=== PATIENT | male | born 1935 | race Caucasian/White ===

== ENCOUNTER 2018-06-04 12:27 | Inpatient (IN) ==
[2018-06-04] MEDS ORDERED: 0.9 % SODIUM CHLORIDE 1,000 ML IV ONE ×2 (12:40→14:24)
--- NOTE | 2018-06-04 12:52 | XRay Report ---
HISTORY: Shortness of breath and weakness FINDINGS: There are bands of scar tissue at the left lung base with minor interstitial fibrosis laterally in the left mid thorax. Mildly prominent increased interstitial lung markings are present in the right lower lobe. These have become worse since 04/04/16. In addition the heart has enlarged since that time. There is no congestive heart failure or pleural effusion. There may be calcified plaques along the top of left diaphragm. Several small calcified granulomata are present bilaterally. IMPRESSION: Pulmonary fibrosis Cardiomegaly Old granulomatous disease Interpreted and Authenticated by: Christian Flores 06/04/18
[2018-06-04] MEDS ORDERED: DEXTROSE 5%-NS 1,000 ML IV SCH (13:15)
[2018-06-04] MEDS ORDERED: IPRATROPIUM/ALBUTEROL 3 ML AMPUL.NEB NEB ONE ×2 (13:15→16:50)
--- NOTE | 2018-06-04 13:40 | Emergency Department Note ---
General Adult HPI - General Chief complaint: Weakness Stated complaint: Weakness Time Seen by Provider: 06/04/18 12:29 Source: patient, family Mode of arrival: ambulatory Limitations: no limitations - History of Present Illness HPI Narrative: 82-year-old male in a knee with 5 days of diarrhea. Patient did have vomiting 4 days ago. Does have a sore throat. Increased fatigue decreased appetite patient is type II diabetic not on insulin. Patient was born with one kidney. Patient has also had decreased fluid intake over the last 5 days. Patient was seen at [facility] diagnosed with nausea vomiting diarrhea provided Lomotil and Zofran. Patient then followed up with primary care today and was diagnosed with yeast in the throat along with acute renal failure and advised to follow- up here. Patient lives with family. Family states he has been less active and sleeping more the last 2 days only eating small amounts and this is not his normal. Patient is supposed to be on oxygen at home but he refuses. Patient does have health history of hypertension, COPD, right absent kidney, degenerative disc disease, type II diabetic not on insulin, pt did have OK 2012 with stent placed and LBBB since, cardiomegaly without CHF. Onset (ago): day(s) (5) Quality: aching Consistency: constant Improves with: none Worsens with: none Associated symptoms: Reports: loss of appetite, malaise, nausea/vomiting Treatments Prior to Arrival: none - Related Data Home Medications Medication Instructions Recorded Confirmed Diphenoxylate HCl/Atropine 1 tab PO TIDP PRN 06/04/18 06/04/18 [Lomotil 2.5-0.025 mg Tablet] Ergocalciferol (Vitamin D2) 2,000 unit PO DAILY 06/04/18 06/04/18 [Vitamin D2] metFORMIN HCL [Metformin HCl] 500 mg PO DAILY 06/04/18 06/04/18 oxyCODONE/APAP [Percocet 5-325 mg] 1 tab PO QIDP PRN 06/04/18 06/04/18 Allergies Allergy/AdvReac Type Severity Reaction Status Date / Time No Known Drug Allergies Allergy Verified 06/04/18 12:32 Review of Systems All systems ED: reviewed and negative except as stated. Past Medical History - Past Medical History [facility] Narrative: All Active Problems ARF (acute renal failure) (Acute) ARF (acute renal failure) (Acute) Medical history: Reports: COPD, coronary artery disease, DM (type 2 non insulin) , hyperlipidemia, hypertension, myocardial infarction (stent 2013), other ( congenital right kidney abscent) Psychiatric history: Reports: no psych history - Social History smoking status: Current every day smoker Physical Exam Limitations: no limitations General appearance: alert, malaise Head: atraumatic, normocephalic, normal inspection Eye: Present: normal appearance, PERRL. Absent: conjunctival injection ENT: normal exam, mucous membranes moist, TM's normal bilaterally, normal external ear exam External ear: Present: normal external inspection Mouth: Present: tongue normal Throat: Present: tonsillar erythema (bright red-postive for yeast) Neck: Present: normal inspection, lymphadenopathy (left tonsilar). Absent: tenderness Chest: Present: normal inspection, symmetric chest wall rise. Absent: tenderness Respiratory: Present: other (pt with diminished lung sounds prior to neb treatment- post treatment airway more patent and with wheezes) Cardiovascular: Present: bradycardia. Absent: systolic murmur, diastolic murmur Abdominal: Present: soft, normal bowel sounds. Absent: distention, tenderness, guarding, rebound, rigidity Extremities: Present: normal inspection. Absent: pedal edema Back: Present: normal inspection. Absent: tenderness, CVA tenderness (R), CVA tenderness (L) Neurological: Present: alert, oriented X3, normal gait Psychiatric: Present: normal affect, normal mood. Absent: depressed, agitated, anxious Skin: Present: warm, dry, intact, normal color. Absent: cyanosis, diaphoresis, erythema Course Vital Signs Temperature 96.8 F L 06/04/18 12:27 Pulse Rate 53 L 06/04/18 12:27 Respiratory Rate 22 06/04/18 12:27 Blood Pressure 141/50 06/04/18 12:27 Pulse Oximetry (%) 94 06/04/18 12:27 Temperature 97.2 F 06/04/18 16:34 Pulse Rate 53 L 06/04/18 16:47 Respiratory Rate 20 06/04/18 16:47 Blood Pressure 115/57 06/04/18 16:34 Pulse Oximetry (%) 91 06/04/18 16:34 Medical Decision Making - MDM Narrative Medical decision making narrative: Patient originally arrived with blood glucose 59. Provided D5W (total 500ml) and food tray, one hour later blood glucose 134. Patient switched back over to normal saline at 100 mL per hour. Patient did receive breathing treatment and DuoNeb via mask. Consulted with who believes this patient is stable to be on floor without monitor for rehydration. Pt has never had kidney issues in the past. Discussed patient history and diagnostics with who will admit to the floor. - Medical Records Medical records reviewed: Yes I reviewed the patient's medical records. Patient was seen 06/02/18 at [facility] ER for nausea/vomiting/diarrhea for 4 days no abdominal pain. Pt with single kidney congenital. Patient was able to hold down water while in the ED. IV was attempted without success, patient was provided sublingual Zofran and prepack Zofran along with 2 tablets of Lomotil. Patient did have a white count of 20.0 and in mature neutrophils. BUN was 27 creatinine 1.8 Patient followed up in primary care office today 06/04/18 in the office labs were taken BUN of 50 creatinine 3.1 closed was low at 50 patient was provided candies which brought the glucose up 77. Drug screen was negative white count was 10.0 neutrophils still increased but less than at [facility] patient has had a 7 pound decrease in the last 34 days. Also positive yeast in throat. - Lab Data Lab results reviewed: Yes I reviewed the patient's lab results. Result diagrams: 06/04/18 13:04 06/04/18 13:04 Lab Results 06/04/18 06/04/18 06/04/18 Range/Units 13:04 13:04 13:04 WBC 9.5 (4.5-11.0) K/mcL RBC 4.19 L (4.50-5.90) M/mcL Hgb 11.7 L (13.5-16.5) g/dL Hct 36.4 L (41.0-55.0) % MCV 86.7 (80.0-100.0) fL MCH 27.9 (26.0-34.0) pg MCHC 32.2 (31.0-36.0) g/dL RDW 14.1 (11.5-14.5) % Plt Count 278 (140-440) K/mcL MPV 8.1 (7.4-10.4) fL Gran % 84.8 H (38.0-78.0) % Lymph % (Auto) 8.8 L (15.5-49.0) % [place] % (Auto) 5.1 (1.0-12.0) % Eos % (Auto) 0.8 (0.0-7.0) % Baso % (Auto) 0.5 (0.0-2.0) % Gran # 8.1 H (1.8-8.0) K/mcL Lymph # (Auto) 0.8 L (1.5-4.8) K/mcL [place] # (Auto) 0.5 (0.1-0.9) K/mcL Eos # (Auto) 0.1 (0.0-0.7) K/mcL Baso # (Auto) 0 (0.0-0.3) K/mcL VBG Lactic Acid 1.9 (0.5-2.0) mmol/L Sodium 138 (133-145) mmol/L Potassium 3.9 (3.3-5.1) mmol/L Chloride 96 (96-108) mmol/L Carbon Dioxide 24 (22-30) mmol/L Anion Gap 18.0 H (8-16) BUN 49 H (8-23) mg/dl Creatinine 3.2 H (0.7-1.2) mg/dl GFR Calculation 17 Glucose 50 L (70-105) mg/dL Calcium 9.0 (8.6-10.4) mg/dl Total Bilirubin 0.4 (0.0-1.0) mg/dL AST 24 (0-37) U/l ALT 19 (0-40) U/l Alkaline Phosphatase 53 (39-117) U/L Total Protein 7.1 (5.9-8.4) gm/dL Albumin 4.0 (3.2-5.2) gm/dL Globulin 3.1 (2.2-3.7) gm/dL Albumin/Globulin Ratio 1.3 (1.0-2.3) - Radiology Data Radiology results reviewed: Yes I reviewed the patient's radiology results. Chest XR: Pulmonary fibrosis Cardiomegaly Old granulomatous disease Disposition Pt seen by [employer]/PA only: No (Khloe) Clinical Impression: ARF (acute renal failure) Qualifiers: Acute renal failure type: unspecified Qualified Code(s): N17.9 - Acute kidney failure, unspecified Disposition: Xfer As Inpt ([facility]) Condition: Fair Time of Disposition: 18:00
[2018-06-04 13:43] LABS: Basophils # (Auto) 0 K/mcL (0.0-0.3); Basophils % (Auto) 0.5 % (0.0-2.0); Eosinophils # (Auto) 0.1 K/mcL (0.0-0.7); Eosinophils % (Auto) 0.8 % (0.0-7.0); Granulocytes % (Auto) 84.8 % (38.0-78.0); Lymphocytes # (Auto) 0.8 K/mcL (1.5-4.8); Lymphocytes % (Auto) 8.8 % (15.5-49.0); Mean Cell Volume 86.7 fL (80.0-100.0); Mean Corpuscular HGB Conc 32.2 g/dL (31.0-36.0); Mean Corpuscular Hemoglobin 27.9 pg (26.0-34.0); Monocytes # (Auto) 0.5 K/mcL (0.1-0.9); Monocytes % (Auto) 5.1 % (1.0-12.0); Platelet Count 278 K/mcL (140-440); RBC 4.19 M/mcL (4.50-5.90); Red Cell Distribution Width 14.1 % (11.5-14.5)
[2018-06-04 13:50] LABS: ALT/SGPT 19 U/l (0-40); Albumin/Globulin Ratio 1.3 (1.0-2.3); Alkaline Phosphatase 53 U/L (39-117); Blood Urea Nitrogen 49 mg/dl (8-23)
--- NOTE | 2018-06-04 15:06 | Internal Med History&Physical ---
Medical - H&P: HPI Patient information: Note initiated : 06/04/18 at 3:02 pm Service Date, if different from initiated Date: [] Patient: Case Ortega 82 y/o M admitted on for Weakness. Chief Complaint: [] Chief complaint: weakness History of present illness: Mr. Ortega is a 82 year old M with history of oxygen dependent COPD/active smoker with over 70 pack yr smoking/ DM type II/congenital single kidney/hypertension/ history of CAD status post stent 2013 who presents to the ER with his daughter with worsening mental status, diarrhea, sore throat and progressive weakness that have evolved over the last 5 days. Patient lives with his daughter and on her normal baseline is able to perform ADLs/drive. His symptoms started with sore throat after he was exposed to a sick contact [id number]. Symptoms were followed by onset of diarrhea and nausea along with loss of appetite. Patient since then has been laying on bed unable to perform ADL's. [facility] at [facility] because of above symptoms and weakness but discharged after a few hours of treatment in the ER. Over the course of the next 48 hours patient became increasingly fatigued lethargic, unable to eat or drink and sleeping most of the day. He presents today with above symptoms. Initial workup was significant for creatinine of 3.2. His white count is down from 20, 2 days ago to 9.5 today. Patient was started on crystalloids, hospitalist service was consulted after discussion with nephrology. At the time of evaluation patient appears fairly confused. He could not recollect the events over the last 5 days. Most of the history was obtained from Ami his daughter. Review of systems Based on leading questions patient denies chest pain headache photophobia, palpitation, cough, shaking chills or fever. He was unable to provide any meaningful history. 10 point review system otherwise is negative except for above Medical - H&P: PMH Medical history: DM type II Congenital single kidney Oxygen dependent COPD Hypertension Coronary artery disease with OH 2013 status Pertinent family history: Son and daughter diabetes Social history: Over [id number] history of smoking No alcoholism Independent ADL and lives with daughter Functional capacity: independent ambulation Smoking status: Current every day smoker Have you smoked in the last 12 months: Yes Drug use: none Alcohol use: none Medical - H&P: Meds Home Medications Medication Instructions Recorded Confirmed Type Diphenoxylate HCl/Atropine 1 tab PO TIDP PRN 06/04/18 06/04/18 History [Lomotil 2.5-0.025 mg Tablet] Ergocalciferol (Vitamin D2) 2,000 unit PO DAILY 06/04/18 06/04/18 History [Vitamin D2] metFORMIN HCL [Metformin HCl] 500 mg PO DAILY 06/04/18 06/04/18 History oxyCODONE/APAP [Percocet 5-325 mg] 1 tab PO QIDP PRN 06/04/18 06/04/18 History Allergies Allergy/AdvReac Type Severity Reaction Status Date / Time No Known Drug Allergies Allergy Verified 06/04/18 12:32 Medical - H&P: Exam - Constitutional Vitals: Temp Pulse Resp BP Pulse Ox 96.8 F L 73 18 108/44 82 L 06/04/18 12:27 06/04/18 14:01 06/04/18 14:48 06/04/18 14:46 06/04/18 14:01 General appearance: average body habitus Exam: Head normocephalic atraumatic Eye movement symmetrical No ear nose discharge Oral cavity dry Neck no lymphadenopathy S1-S2 regular ESM grade 1 Diminished breath sounds bases Abdomen soft nontender Lower extremity no cyanosis clubbing Skin no suspicious lesion Psych anxious, confused Neuro moving all 4 extremities Medical - H&P: Reslt - Labs CBC & Chem 7: 06/04/18 13:04 06/04/18 13:04 Labs: Short CBC 06/04/18 Range/Units 13:04 WBC 9.5 (4.5-11.0) K/mcL Hgb 11.7 L (13.5-16.5) g/dL Hct 36.4 L (41.0-55.0) % Plt Count 278 (140-440) K/mcL BMP 06/04/18 13:04 Sodium 138 Potassium 3.9 Chloride 96 Carbon Dioxide 24 BUN 49 H Creatinine 3.2 H Glucose 50 L Calcium 9.0 Liver Function 06/04/18 Range/Units 13:04 Total Bilirubin 0.4 (0.0-1.0) mg/dL AST 24 (0-37) U/l ALT 19 (0-40) U/l Alkaline Phosphatase 53 (39-117) U/L Albumin 4.0 (3.2-5.2) gm/dL Medical - H&P: A/P (1) ARF (acute renal failure) Current visit: Yes Status: Acute * Acute renal failure likely prerenal secondary to massive volume depletion from diarrhea. Nephrology consulted. Continue crystalloids challenge/ maintenance. Renal ultrasound/Gonzalez's catheter/IOs/UA. Avoid nephrotoxins * Severe diarrhea -continue supportive management with crystalloids. stool culture/C. difficile * Volume depletion on crystalloids * DM type II continue sliding-scale insulin * COPD continue bronchodilators/oxygen * History of tobacco dependence start nicotine patch * Full code * Prophylaxis heparin Plan * Crystalloid challenge * Stool studies * Renal failure evaluation per nephrology, check UA/renal ultrasound, close monitoring of I/O * Prior medical condition management as above * Inpatient admit in light of advanced age/organ failure
[2018-06-04] MEDS ORDERED: ACETAMINOPHEN 325 MG TABLET PO PRN (16:34)
[2018-06-04] MEDS ORDERED: LACTATED RINGERS 1,000 ML IV SCH (16:34)
[2018-06-04] MEDS ORDERED: POTASSIUM CHLORIDE 40 MEQ in DEXTROSE 5% IN WATER 500 ML IV PRN (16:34)
[2018-06-04] MEDS ORDERED: POTASSIUM CHLORIDE 20 MEQ PACKET PO PRN (16:34)
[2018-06-04] MEDS ORDERED: MAGNESIUM SULFATE 2 GM/50 ML BAG IV PRN (16:34)
[2018-06-04] MEDS ORDERED: ACETAMINOPHEN 1,000 MG/100 ML BOTTLE IV PRN (16:34)
[2018-06-04] MEDS ORDERED: ONDANSETRON 4 MG/2 ML VIAL IV PRN (16:34)
[2018-06-04] MEDS: IPRATROPIUM/ALBUTEROL 3 ML AMPUL.NEB NEB SCH ×3 (16:47→23:01)
[2018-06-04 17:48] LABS: C-Reactive Protein 5.5 mg/dl (0.0-0.8)
--- NOTE | 2018-06-04 17:52 | Ultrasound Report ---
History: Acute renal failure and born with only one kidney FINDINGS: Patient is a solitary left kidney measures 6.4 x 7.1 x 13.5 cm. There is no evidence of a mass, cyst or calculus or hydronephrosis. The cortex is mildly echogenic suggesting mild chronic medical renal disease. There is no thinning of the cortex. Doppler shows normal blood flow. Doppler also demonstrated flow of urine through the left ureter into the bladder. Bladder contained 96 cc of urine and has a smooth wall. The patient was unable to void at this time. IMPRESSION: Mildly echogenic cortex in the left kidney which may be seen with chronic medical renal disease. No acute abnormality is identified in the solitary left kidney Interpreted and Authenticated by: Christian Flores 06/04/18
[2018-06-04] MEDS: 0.9 % SODIUM CHLORIDE 10 ML SYRINGE IV SCH ×2 (20:22→20:23)
[2018-06-04] MEDS ORDERED: HEPARIN 5,000 UNIT/ML VIAL SQ SCH (21:00)
[2018-06-04] MEDS ORDERED: CYANOCOBALAMIN (VITAMIN B-12) 500 MCG TABLET PO SCH (21:00)
[2018-06-04] MEDS ORDERED: BUDESONIDE 0.5 MG/2 ML AMPUL.NEB NEB SCH (21:00)
[2018-06-04 23:25] LABS: Appearance,Urine CLEAR; Bacteria,Urine 0 /hpf (0); Bilirubin,Urine NEG (NEG); Calcium Oxalate Crystals,Urine FEW /hpf (0); Color,Urine YELLOW; Glucose,Urine (UA) NEGATIVE (NEG); Leukocyte Esterase,Urine 75 /uL (NEG); Mucus,Urine FEW /hpf (0); Protein,Urine NEG (NEG); Specific Gravity,Urine 1.018 (1.000-1.035); Urine Blood NEG mg/dL (<0.03); Urine Hyaline Cast 29 /lpf (0-2); Urine RBC 1 /hpf (0-1); Urine Squamous Epithelial Cell 1 /hpf (0-4); Urine WBC 2 /hpf (0-4); Urobilinogen,Urine NEG (NEG)
[2018-06-05] MEDS: IPRATROPIUM/ALBUTEROL 3 ML AMPUL.NEB NEB SCH ×6 (01:56→22:40)
[2018-06-05] MEDS ORDERED: FUROSEMIDE 40 MG/4 ML VIAL IV ONE ×2 (03:24→03:32)
[2018-06-05] MEDS ORDERED: MAGNESIUM SULFATE 2 GM/50 ML BAG IV PRN (04:14)
[2018-06-05] MEDS ORDERED: POTASSIUM CHLORIDE 40 MEQ in DEXTROSE 5% IN WATER 500 ML IV PRN (04:14)
[2018-06-05] MEDS ORDERED: ONDANSETRON 4 MG/2 ML VIAL IV PRN (04:14)
[2018-06-05] MEDS ORDERED: POTASSIUM CHLORIDE 20 MEQ PACKET PO PRN (04:14)
[2018-06-05] MEDS ORDERED: ACETAMINOPHEN 325 MG TABLET PO PRN (04:14)
[2018-06-05] MEDS ORDERED: ACETAMINOPHEN 1,000 MG/100 ML BOTTLE IV PRN (04:14)
[2018-06-05] MEDS: 0.9 % SODIUM CHLORIDE 10 ML SYRINGE IV SCH ×3 (05:25→20:53)
[2018-06-05] MEDS: NICOTINE 21 MG PATCH TOPICAL SCH ×2 (05:35→10:45)
[2018-06-05] MEDS ORDERED: NICOTINE 21 MG PATCH ONE (05:42)
[2018-06-05 05:47] LABS: Mean Cell Volume 88.8 fL (80.0-100.0); Mean Corpuscular HGB Conc 33.1 g/dL (31.0-36.0); Mean Corpuscular Hemoglobin 29.4 pg (26.0-34.0); Platelet Count 255 K/mcL (140-440); RBC 3.68 M/mcL (4.50-5.90); Red Cell Distribution Width 14.6 % (11.5-14.5)
[2018-06-05 06:28] LABS: ALT/SGPT 31 U/l (0-40); Albumin 3.6 gm/dL (3.2-5.2); Albumin/Globulin Ratio 1.2 (1.0-2.3); Alkaline Phosphatase 49 U/L (39-117); Bilirubin,Direct < 0.2 mg/dL (0.0-0.3); Blood Urea Nitrogen 47 mg/dl (8-23); Gamma Glutamyl Transpeptidase 41 U/L (8-61); Uric Acid 10.7 mg/dL (2.5-8.0)
[2018-06-05] MEDS ORDERED: DEXTROSE 50% 50 ML VIAL IV ONE ×2 (06:37→06:49)
[2018-06-05 07:21] LABS: Band Neutrophils % 1 % (0-10); Lymphocytes % 9 % (15-49); Monocytes % (Manual) 3 % (1-12); Platelet Estimate NORMAL (NORMAL); RBC Morphology NORMAL (NORMAL); Segmented Neutrophils % 87 % (38-78)
[2018-06-05] MEDS: BUDESONIDE 0.5 MG/2 ML AMPUL.NEB NEB SCH ×2 (07:32→19:20)
--- NOTE | 2018-06-05 08:04 | XRay Report ---
HISTORY: Shortness of breath and weakness FINDINGS: Heart is mildly enlarged. Patient has pulmonary fibrosis and there are multiple small granulomata bilaterally. There is scar tissue adjacent to the cardiac apex. A vague infiltrate is developing in the left lung around the hilum and extending down to the diaphragm. The infiltrate has become more apparent since 06/04/18. The fibrosis in the right lung has remained stable. No pleural effusion is present. Calcified pleural plaque is again seen along the left diaphragm. IMPRESSION: Mild infiltrate developing in the left lung superimposed upon underlying pulmonary fibrosis. Stable cardiomegaly Interpreted and Authenticated by: Christian Flores 06/05/18
[2018-06-05] MEDS ORDERED: MULTIVIT,THER IRON,CA,FA & MIN 1 TABLET PO SCH (09:00)
[2018-06-05] MEDS ORDERED: FOLIC ACID 1 MG TABLET PO SCH (09:00)
[2018-06-05] MEDS ORDERED: NICOTINE 21 MG PATCH TOPICAL SCH (10:00)
[2018-06-05] MEDS: PIPERACILLIN SODIUM/TAZOBACTAM 2.25 GM in DEXTROSE 5% IN WATER 50 ML IV SCH ×4 (10:42→23:42)
[2018-06-05] MEDS: CYANOCOBALAMIN (VITAMIN B-12) 500 MCG TABLET PO SCH ×2 (10:44→20:52)
[2018-06-05] MEDS: MULTIVIT,THER IRON,CA,FA & MIN 1 TABLET PO SCH (10:44)
[2018-06-05] MEDS: HEPARIN 5,000 UNIT/ML VIAL SQ SCH ×2 (10:44→20:52)
[2018-06-05] MEDS: FOLIC ACID 1 MG TABLET PO SCH (10:44)
--- NOTE | 2018-06-05 12:15 | Internal Med Progress Note ---
Medical - PN: Subj Patient information: Note initiated : 06/05/18 at 12:12 pm Service Date, if different from initiated Date: [] Patient: Case Ortega a 82 y/o M admitted on 06/04/18 for Weakness. Chief Complaint: [] Interval history: Mr. Ortega is a 82 year old M with history of oxygen dependent COPD/active smoker with over 70 pack yr smoking/ DM type II/congenital single kidney/hypertension/ history of CAD status post stent 2012 who presents to the ER with his daughter with worsening mental status, diarrhea, sore throat and progressive weakness that have evolved over the last 5 days. Patient lives with his daughter and on her normal baseline is able to perform ADLs/drive. His symptoms started with sore throat after he was exposed to a sick contact [id number]. Symptoms were followed by onset of diarrhea and nausea along with loss of appetite. Patient since then has been laying on bed unable to perform ADL's. He was seen at [facility] because of above symptoms and weakness but discharged after a few hours of treatment in the ER. Over the course of the next 48 hours patient became increasingly fatigued lethargic, unable to eat or drink and sleeping most of the day. He presents today with above symptoms. Initial workup was significant for creatinine of 3.2. His white count is down from 20, 2 days ago to 9.5 today. Patient was started on crystalloids, hospitalist service was consulted after discussion with nephrology. 06/05-patient experiencing significant shortness of breath. Fluids temperature is continued. Chest x-ray shows basilar infiltrates/effusion. Started on antibiotic coverage. Low blood glucose. Status post D50. Creatinine down from 2.2-2.7. Blood cultures positive for gram-positive cocci. Surveillance blood cultures pending. On empiric coverage and Zosyn. Echocardiogram ordered. Patient started on BiPAP along with diuretics due to increased work of breathing. Case discussed with daughter Ami and son. Updated on deteriorating clinical status and treatment plan. Family made aware of poor prognosis. - Constitutional Vitals: Vital Signs Temp Pulse Resp BP Pulse Ox 97.6 F 61 19 120/46 96 06/05/18 11:01 06/05/18 11:29 06/05/18 11:29 06/05/18 11:01 06/05/18 11:24 Period Temp Pulse Resp BP Sys/Martinez Pulse Ox Last 24 Hr 96.8 F-98.6 F 53-90 13-24 98-163/36-103 82-100 Intake and Output 06/04/18 06/05/18 06/05/18 21:59 05:59 13:59 Intake Total 583 / 583 Output Total 1725 / 1725 770 / 770 Balance 583 / 583 -1725 / -1725 -770 / -770 Weight 215 lb 215 lb Patient Weight 06/06/18 05:59 Weight 215 lb Intake & Output: Intake & Output 06/04/18 06/05/18 06/05/18 21:59 05:59 13:59 Intake Total 583 / 583 Output Total 1725 / 1725 770 / 770 Balance 583 / 583 -1725 / -1725 -770 / -770 Weight 215 lb 215 lb Intake: IV 583 / 583 Dextrose 5%-Ns IV Solution 1, 583 / 583 000 ml @ 500 mls/hr IV BOLUS [facility] Rx#:[id number] Output: Urine Catheter Amount 1100 / 1100 770 / 770 Void Amount 625 / 625 Other: Urine Appearance Clear Clear Sediment Uretheral (Gonzalez) Clear Urine Color Bright Yellow Straw Uretheral (Gonzalez) Pale General appearance: moderate distress (Shortness of breath) Exam: On noninvasive ventilation Gonzalez is draining clear urine Tachycardia Alert and responding to commands Intermittently confused Medical - PN: Obj Da - Labs CBC & Chem 7: 06/05/18 03:29 06/05/18 03:29 Labs: Abnormal Lab Results 06/05/18 06/05/18 06/05/18 09:40 03:29 03:29 RBC 3.68 L Hgb 10.8 L Hct 32.7 L RDW 14.6 H Gran % Lymph % (Auto) Gran # Lymph # (Auto) Seg Neutrophils % 87 H Lymphocytes % 9 L ESR Anion Gap BUN 47 H Creatinine 2.7 H Glucose 26 L* Uric Acid 10.7 H Magnesium 1.4 L AST 39 H C-Reactive Protein NT-Pro-B Natriuret Pep 1667.0 H Triglycerides 206 H Ur Leukocyte Esterase Calcium Oxalate Crystal Hyaline Casts 06/04/18 06/04/18 06/04/18 22:08 16:57 16:57 RBC Hgb Hct RDW Gran % Lymph % (Auto) Gran # Lymph # (Auto) Seg Neutrophils % Lymphocytes % ESR 35 H Anion Gap BUN Creatinine Glucose Uric Acid Magnesium AST C-Reactive Protein 5.5 H NT-Pro-B Natriuret Pep Triglycerides Ur Leukocyte Esterase 75 A Calcium Oxalate Crystal Few A Hyaline Casts 29 H 06/04/18 06/04/18 13:04 13:04 RBC 4.19 L Hgb 11.7 L Hct 36.4 L RDW Gran % 84.8 H Lymph % (Auto) 8.8 L Gran # 8.1 H Lymph # (Auto) 0.8 L Seg Neutrophils % Lymphocytes % ESR Anion Gap 18.0 H BUN 49 H Creatinine 3.2 H Glucose 50 L Uric Acid Magnesium AST C-Reactive Protein NT-Pro-B Natriuret Pep Triglycerides Ur Leukocyte Esterase Calcium Oxalate Crystal Hyaline Casts Meds: Medications Acetaminophen (Tylenol) 650 mg PO Q4-6HP PRN PRN Reason: PAIN/FEVER > 101 Albuterol/Ipratropium (Duoneb) 3 ml NEB Q4HRT [facility] Last Admin: 06/05/18 11:28 Dose: 3 ml Budesonide (Pulmicort) 0.5 mg NEB Q12 [facility] Last Admin: 06/05/18 07:32 Dose: 0.5 mg Cyanocobalamin (Vitamin B-12) 1,000 mcg PO BID [facility] Stop: 06/09/18 09:01 Last Admin: 06/05/18 10:44 Dose: Not Given Folic Acid (Folic Acid) 1 mg PO DAILY [facility] Last Admin: 06/05/18 10:44 Dose: Not Given Heparin Sodium (Porcine) (Heparin) 5,000 unit SQ Q12 [facility] Last Admin: 06/05/18 10:44 Dose: 5,000 unit Potassium Chloride 40 meq/ (Dextrose) 520 mls @ 130 mls/hr IV UD PRN PRN Reason: K+ = or < 3.5 Magnesium Sulfate (Magnesium Sulfate) 2 gm in 50 mls @ 50 mls/hr IV UD PRN PRN Reason: MG = or < 1.7 Last Admin: 06/05/18 08:29 Dose: 50 mls/hr Acetaminophen (Ofirmev) 1,000 mg in 100 mls @ 200 mls/hr IV Q6HP PRN PRN Reason: PAIN/FEVER > 101 Piperacillin Sod/Tazobactam (Sod 2.25 gm/ Dextrose) 50 mls @ 100 mls/hr IV Q6H [facility] Last Admin: 06/05/18 10:42 Dose: 100 mls/hr Iron Carb/Multivit/Shinglehouse/Folic Acid (Multivitamin W/Minerals) 1 tab PO DAILY [facility] Last Admin: 06/05/18 10:44 Dose: Not Given Nicotine (Nicoderm) 21 mg TOPICAL DAILY@1000 [facility] Last Admin: 06/05/18 10:45 Dose: Not Given Ondansetron HCl (Zofran) 4 mg IV Q4-6HP PRN PRN Reason: Nausea And Vomiting Potassium Chloride (Klor-Con) 40 meq PO DAILYP PRN PRN Reason: K+ < 3.5 Sodium Chloride (Saline Flush) 10 ml IV Q8 [facility] Last Admin: 06/05/18 05:25 Dose: 10 ml Medical - PN: A/P - Time Spent With Patient Total time spent is greater than 50% in coordination of care (as documented) at patient's floor/unit and/or counseling patient: 25 - 35 minutes (Critical care time) (1) ARF (acute renal failure) Status: Acute Assessment and plan: * Acute hypoxic/hypercapnic respiratory failure-secondary to pneumonia/CHF. Continue noninvasive ventilation. ABGs 7.32/50 4/52 on 10 L oxygen mask * Left lower lobe pneumonia with gram-positive bacteremia-surveillance cultures/ broad antibiotic coverage. * Decompensated heart failure-as evident on chest x-ray. Echocardiogram/ continue diuresis * Acute renal failure-clinically improving with crystalloids. Creatinine down from 3.2-2.7. Renal ultrasound solitary left kidney no acute abnormality * Severe diarrhea -continue supportive management with crystalloids. stool culture/C. difficile * Volume depletion -resolved. Crystalloid discontinued. * DM type II continue sliding-scale insulin * COPD continue bronchodilators/oxygen * History of tobacco dependence start nicotine patch * Full code * Prophylaxis heparin Plan * Echocardiogram/diuresis * Transferred to ICU in light of acute hypercapnic /hypoxic respiratory failure * Noninvasive ventilation * Antibiotic coverage * surveillance cultures * Grindstone II score over 16 signifying high risk mortality * Stool studies awaited * Prior medical condition management as above Critical care time 35 minutes Current Visit: Yes Medical - PN: Qual - Stroke Symptom Onset Unknown: No - VTE Deep Vein Thrombosis/Pulmonary Embolism Present on Admission: No
--- NOTE | 2018-06-05 16:24 | Nephrology Consult Note ---
History of Present Illness - Reason for Consult Patient information: Note initiated : 06/05/18 at 4:18 pm Service Date, if different from initiated Date: [] Patient: Case Ortega 82 y/o M admitted on 06/04/18 for Weakness. Chief Complaint: [] Consult date: 06/04/18 acute renal failure Requesting physician: Tasha Ledbetter - Chief Complaint weakness - History of Present Illness Patient is a 82 y/o white male with PMH of HTN, DM type 2, COPD, CAD and other medical issues who presented to the ER yesterday with chief complaints of weakness Patient has not been feeling well for the past one week, symptoms started with sore throat, then had diarrhea for the last 5 days, loose watery x 3 and one episode of vomiting, Family states he has been weak with poor appetite, sleeping most of the time. Was taken to ER at [facility], discharged from ER, s.creat there was 1.8. Patient referred to ER from PCP clinic because of symptoms and worsening renal function, S.creatinine was 3.2 here at presentation. Patient was hospitalised to diarrhea, volume depletion, KVNG. Overnight patient became more SOB and was transferred to ICU for this, on bipap ventilation this am. He received IVF for volume depletion but then had to be diuresed for worsening resp status family denies fever, worsenign cough, phlegm no CP no edema no urinary symptoms he has severe COPD, does nebulisation 4 x day and was recommended to have oxygen supplementation which he has denied unclear if he has CKD Review of Systems All systems PM: reviewed and no additional remarkable complaints except as stated (LIMITED as patient on bipap, tachypenic, pertinent docmented in HPI) Past History Past medical history: HTN COPD CAD, CO in 2013 DM type 2 SOLITARY KIDNEY Past family history: Son and daughter have DM Past social history: SMOKES CIG, no other addictions lives with daughter independent with ADL Medications and Allergies Home Medications Medication Instructions Recorded Confirmed Type Diphenoxylate HCl/Atropine 1 tab PO TIDP PRN 06/04/18 06/04/18 History [Lomotil 2.5-0.025 mg Tablet] Ergocalciferol (Vitamin D2) 2,000 unit PO DAILY 06/04/18 06/04/18 History [Vitamin D2] metFORMIN HCL [Metformin HCl] 500 mg PO DAILY 06/04/18 06/04/18 History oxyCODONE/APAP [Percocet 5-325 mg] 1 tab PO QIDP PRN 06/04/18 06/04/18 History Allergies Allergy/AdvReac Type Severity Reaction Status Date / Time No Known Drug Allergies Allergy Verified 06/04/18 12:32 Exam - Vital Signs Vital signs: Temp Pulse Resp BP Pulse Ox 97.6 F 85 26 H 133/99 93 06/05/18 11:01 06/05/18 15:46 06/05/18 15:46 06/05/18 15:02 06/05/18 15:46 - General Appearance General appearance: appears started age, chronically ill Neck: no JVD Respiratory: wheezing, rales Cardiology: no rub, no edema, normal S1, normal S2 Gastrointestinal: no tenderness, no guarding Integumentary: warm and dry Neurologic: alert and oriented x3 Musculoskeletal: no erythema, no cyanosis Results - Lab Results 06/05/18 03:29 06/05/18 03:29 Most recent lab results Calcium 8.9 mg/dl (8.6-10.4) 06/05/18 03:29 Phosphorus 3.4 mg/dL (2.7-4.5) 06/05/18 03:29 Magnesium 1.4 mg/dL (1.6-2.5) L 06/05/18 03:29 Assessment and Plan (1) ARF (acute renal failure) Status: Acute - Narrative A/P Narrative: Patient with acute worsening of renal function, unclear baseline but s.creat was 1.8 when checked at [facility] ER his s.creat trend here is 3.2-2.7 UA with hyaline casts renal US unremarkable KVNG likely from pre renal state leading to ATN, renal function is a little better concern of worsening respiratory status, has severe COPD, CXR with infiltrate, pro calcitonin elevated, consider IV antibiotics unclear if has CHF Will obtain pro bnp/echo, repeat lactic acid procalcitonin level IV diuretics as needed to avoid respiratory decompensation PNA/diarrhea: management per hospitalist will follow renal function Thank you for giving me an opportunity to participate in Mr Ortega's medical car, e appreciate it
[2018-06-06] MEDS: IPRATROPIUM/ALBUTEROL 3 ML AMPUL.NEB NEB SCH ×6 (03:13→22:47)
[2018-06-06] MEDS: PIPERACILLIN SODIUM/TAZOBACTAM 2.25 GM in DEXTROSE 5% IN WATER 50 ML IV SCH ×4 (05:55→23:50)
[2018-06-06] MEDS: 0.9 % SODIUM CHLORIDE 10 ML SYRINGE IV SCH ×3 (05:56→20:04)
[2018-06-06 06:03] LABS: ALT/SGPT 28 U/l (0-40); Albumin 3.5 gm/dL (3.2-5.2); Albumin/Globulin Ratio 1.1 (1.0-2.3); Alkaline Phosphatase 56 U/L (39-117); Bilirubin,Direct 0.3 mg/dL (0.0-0.3); Blood Urea Nitrogen 44 mg/dl (8-23); Gamma Glutamyl Transpeptidase 43 U/L (8-61); Uric Acid 11.5 mg/dL (2.5-8.0)
[2018-06-06 06:07] LABS: Mean Cell Volume 89.4 fL (80.0-100.0); Mean Corpuscular HGB Conc 32.8 g/dL (31.0-36.0); Mean Corpuscular Hemoglobin 29.3 pg (26.0-34.0); Platelet Count 259 K/mcL (140-440); Red Cell Distribution Width 14.9 % (11.5-14.5)
[2018-06-06] MEDS: BUDESONIDE 0.5 MG/2 ML AMPUL.NEB NEB SCH ×2 (08:05→19:14)
[2018-06-06 08:17] LABS: Band Neutrophils % 7 % (0-10); Eosinophils % (Manual) 2 % (0-7); Lymphocytes % 13 % (15-49); Monocytes % (Manual) 6 % (1-12); Platelet Estimate NORMAL (NORMAL); RBC Morphology NORMAL (NORMAL); Segmented Neutrophils % 72 % (38-78)
--- NOTE | 2018-06-06 09:22 | Internal Med Progress Note ---
Medical - PN: Subj Patient information: Note initiated : 06/06/18 at 9:19 am Service Date, if different from initiated Date: [] Patient: Case Ortega a 82 y/o M admitted on 06/04/18 for Weakness. Chief Complaint: [] Interval history: Mr. Ortega is a 82 year old M with history of oxygen dependent COPD/active smoker with over 70 pack yr smoking/ DM type II/congenital single kidney/hypertension/ history of CAD status post stent 2012 who presents to the ER with his daughter with worsening mental status, diarrhea, sore throat and progressive weakness that have evolved over the last 5 days. Patient lives with his daughter and on her normal baseline is able to perform ADLs/drive. His symptoms started with sore throat after he was exposed to a sick contact [id number]. Symptoms were followed by onset of diarrhea and nausea along with loss of appetite. Patient since then has been laying on bed unable to perform ADL's. He was seen at [facility] because of above symptoms and weakness but discharged after a few hours of treatment in the ER. Over the course of the next 48 hours patient became increasingly fatigued lethargic, unable to eat or drink and sleeping most of the day. He presents today with above symptoms. Initial workup was significant for creatinine of 3.2. His white count is down from 20, 2 days ago to 9.5 today. Patient was started on crystalloids, hospitalist service was consulted after discussion with nephrology. 06/05-patient experiencing significant shortness of breath. Fluids temperature is continued. Chest x-ray shows basilar infiltrates/effusion. Started on antibiotic coverage. Low blood glucose. Status post D50. Creatinine down from 2.2-2.7. Blood cultures positive for gram-positive cocci. Surveillance blood cultures pending. On empiric coverage and Zosyn. Echocardiogram ordered. Patient started on BiPAP along with diuretics due to increased work of breathing. Case discussed with daughter Ami and son. Updated on deteriorating clinical status and treatment plan. Family made aware of poor prognosis. 06/06-patient off BiPAP. No overnight events. Feeling a lot better. Son at bedside. Discussed lab findings and clinical improvement. Patient will be transferred to medical floor. Anticipate discharge on Friday. Continue physical therapy. White count 12.8. Creatinine down to 2.3. Continuing antibiotic coverage for left sided pneumonia. - Constitutional Vitals: Vital Signs Temp Pulse Resp BP Pulse Ox 96.7 F L 67 24 H 140/55 94 06/06/18 04:01 06/06/18 08:19 06/06/18 08:19 06/06/18 05:01 06/06/18 08:12 Period Temp Pulse Resp BP Sys/Martinez Pulse Ox Last 24 Hr 96.7 F-98.2 F 60-89 15-26 109-150/42-99 89-100 Intake and Output 06/05/18 06/06/18 06/06/18 21:59 05:59 13:59 Intake Total 700 / 700 50 / 50 Output Total 420 / 420 510 / 510 Balance 280 / 280 -460 / -460 Weight 208 lb Intake & Output: Intake & Output 06/05/18 06/06/18 06/06/18 21:59 05:59 13:59 Intake Total 700 / 700 50 / 50 Output Total 420 / 420 510 / 510 Balance 280 / 280 -460 / -460 Weight 208 lb Intake: IV 100 / 100 50 / 50 Zosyn 2.25 gm In Dextrose 5% in 100 / 100 50 / 50 Water 50 ml @ 100 mls/hr IV Q6H [facility] Rx#:[id number] Oral 600 / 600 Output: Urine Catheter Amount 420 / 420 510 / 510 Other: Meal Dinner Percent of Meal Consumed 25% Urine Appearance Clear Clear Uretheral (Gonzalez) Clear Clear Urine Color Dark Yellow Light Soniya Uretheral (Gonzalez) Dark Yellow Light Soniya Urine Odor Normal General appearance: no acute distress Exam: Alert and oriented off BiPAP Minimal anxiety Nonlabored breathing No lymphedema Medical - PN: Obj Da - Labs CBC & Chem 7: 06/06/18 03:52 06/06/18 03:52 Labs: Abnormal Lab Results 06/06/18 06/06/18 06/05/18 03:52 03:52 09:40 WBC 12.8 H RBC 3.80 L Hgb 11.1 L Hct 34.0 L RDW 14.9 H Gran % Lymph % (Auto) Gran # Lymph # (Auto) Seg Neutrophils % Lymphocytes % 13 L ESR Anion Gap BUN 44 H Creatinine 2.3 H Glucose 140 H Uric Acid 11.5 H Magnesium AST C-Reactive Protein NT-Pro-B Natriuret Pep 1667.0 H Triglycerides 182 H Ur Leukocyte Esterase Calcium Oxalate Crystal Hyaline Casts 06/05/18 06/05/18 06/04/18 03:29 03:29 22:08 WBC RBC 3.68 L Hgb 10.8 L Hct 32.7 L RDW 14.6 H Gran % Lymph % (Auto) Gran # Lymph # (Auto) Seg Neutrophils % 87 H Lymphocytes % 9 L ESR Anion Gap BUN 47 H Creatinine 2.7 H Glucose 26 L* Uric Acid 10.7 H Magnesium 1.4 L AST 39 H C-Reactive Protein NT-Pro-B Natriuret Pep Triglycerides 206 H Ur Leukocyte Esterase 75 A Calcium Oxalate Crystal Few A Hyaline Casts 29 H 06/04/18 06/04/18 06/04/18 16:57 16:57 13:04 WBC RBC Hgb Hct RDW Gran % Lymph % (Auto) Gran # Lymph # (Auto) Seg Neutrophils % Lymphocytes % ESR 35 H Anion Gap 18.0 H BUN 49 H Creatinine 3.2 H Glucose 50 L Uric Acid Magnesium AST C-Reactive Protein 5.5 H NT-Pro-B Natriuret Pep Triglycerides Ur Leukocyte Esterase Calcium Oxalate Crystal Hyaline Casts 06/04/18 13:04 WBC RBC 4.19 L Hgb 11.7 L Hct 36.4 L RDW Gran % 84.8 H Lymph % (Auto) 8.8 L Gran # 8.1 H Lymph # (Auto) 0.8 L Seg Neutrophils % Lymphocytes % ESR Anion Gap BUN Creatinine Glucose Uric Acid Magnesium AST C-Reactive Protein NT-Pro-B Natriuret Pep Triglycerides Ur Leukocyte Esterase Calcium Oxalate Crystal Hyaline Casts Meds: Medications Acetaminophen (Tylenol) 650 mg PO Q4-6HP PRN PRN Reason: PAIN/FEVER > 101 Albuterol/Ipratropium (Duoneb) 3 ml NEB Q4HRT [facility] Last Admin: 06/06/18 08:05 Dose: 3 ml Budesonide (Pulmicort) 0.5 mg NEB Q12 [facility] Last Admin: 06/06/18 08:05 Dose: 0.5 mg Cyanocobalamin (Vitamin B-12) 1,000 mcg PO BID [facility] Stop: 06/09/18 09:01 Last Admin: 06/05/18 20:52 Dose: 1,000 mcg Folic Acid (Folic Acid) 1 mg PO DAILY [facility] Last Admin: 06/05/18 10:44 Dose: Not Given Heparin Sodium (Porcine) (Heparin) 5,000 unit SQ Q12 [facility] Last Admin: 06/05/18 20:52 Dose: 5,000 unit Potassium Chloride 40 meq/ (Dextrose) 520 mls @ 130 mls/hr IV UD PRN PRN Reason: K+ = or < 3.5 Magnesium Sulfate (Magnesium Sulfate) 2 gm in 50 mls @ 50 mls/hr IV UD PRN PRN Reason: MG = or < 1.7 Last Infusion: 06/05/18 09:30 Dose: Infused Acetaminophen (Ofirmev) 1,000 mg in 100 mls @ 200 mls/hr IV Q6HP PRN PRN Reason: PAIN/FEVER > 101 Piperacillin Sod/Tazobactam (Sod 2.25 gm/ Dextrose) 50 mls @ 100 mls/hr IV Q6H [facility] Last Admin: 06/06/18 05:55 Dose: 100 mls/hr Iron Carb/Multivit/[place]/Folic Acid (Multivitamin W/Minerals) 1 tab PO DAILY [facility] Last Admin: 06/05/18 10:44 Dose: Not Given Nicotine (Nicoderm) 21 mg TOPICAL DAILY@1000 [facility] Last Admin: 06/05/18 10:45 Dose: Not Given Ondansetron HCl (Zofran) 4 mg IV Q4-6HP PRN PRN Reason: Nausea And Vomiting Potassium Chloride (Klor-Con) 40 meq PO DAILYP PRN PRN Reason: K+ < 3.5 Sodium Chloride (Saline Flush) 10 ml IV Q8 [facility] Last Admin: 06/06/18 05:56 Dose: 10 ml Medical - PN: A/P - Time Spent With Patient Total time spent is greater than 50% in coordination of care (as documented) at patient's floor/unit and/or counseling patient: 25 - 35 minutes (1) ARF (acute renal failure) Status: Acute Assessment and plan: * Acute hypoxic/hypercapnic respiratory failure-secondary to pneumonia/CHF. Clinical improvement noted on noninvasive ventilation. Currently off BiPAP. on 4 L O2 * Sepsis with GPC bacteremia-await echocardiogram to rule out IE. Continue vancomycin. Continue surveillance cultures. Pro-calcitonin downtrending * Left lower lobe pneumonia with gram-positive bacteremia-surveillance cultures negative so far, Continue Zosyn and vancomycin. * Acute renal failure-clinically improving with crystalloids. Creatinine down from 3.2-2.3. Renal US negative * Severe diarrhea -clinically improved * Volume depletion -resolved. * DM type II continue sliding-scale insulin * COPD continue bronchodilators/oxygen * History of tobacco dependence start nicotine patch * Full code * Prophylaxis heparin Plan * Start vancomycin for GPC bacteremia * Transfer to medical floor * Continue supplemental oxygen * Await echocardiogram * Improved prognosis since previous day * Prior medical condition management as above Current Visit: Yes Medical - PN: Qual - Stroke Symptom Onset Unknown: No - VTE Deep Vein Thrombosis/Pulmonary Embolism Present on Admission: No
[2018-06-06] MEDS: MULTIVIT,THER IRON,CA,FA & MIN 1 TABLET PO SCH (10:38)
[2018-06-06] MEDS: NICOTINE 21 MG PATCH TOPICAL SCH (10:38)
[2018-06-06] MEDS: HEPARIN 5,000 UNIT/ML VIAL SQ SCH ×2 (10:38→20:04)
[2018-06-06] MEDS: FOLIC ACID 1 MG TABLET PO SCH (10:38)
[2018-06-06] MEDS: CYANOCOBALAMIN (VITAMIN B-12) 500 MCG TABLET PO SCH ×2 (10:38→20:04)
[2018-06-06] MEDS ORDERED: POTASSIUM CHLORIDE 40 MEQ in DEXTROSE 5% IN WATER 500 ML IV PRN (10:40)
[2018-06-06] MEDS ORDERED: VANCOMYCIN PER PHARMACY IV SCH (10:40)
[2018-06-06] MEDS ORDERED: ONDANSETRON 4 MG/2 ML VIAL IV PRN (10:40)
[2018-06-06] MEDS ORDERED: ACETAMINOPHEN 1,000 MG/100 ML BOTTLE IV PRN (10:40)
[2018-06-06] MEDS ORDERED: ACETAMINOPHEN 325 MG TABLET PO PRN (10:40)
[2018-06-06] MEDS ORDERED: MAGNESIUM SULFATE 2 GM/50 ML BAG IV PRN (10:40)
[2018-06-06] MEDS ORDERED: POTASSIUM CHLORIDE 20 MEQ PACKET PO PRN (10:40)
[2018-06-06] MEDS ORDERED: VANCOMYCIN 1,500 MG in 0.9 % SODIUM CHLORIDE 500 ML IV ONE (12:00)
[2018-06-07] MEDS: IPRATROPIUM/ALBUTEROL 3 ML AMPUL.NEB NEB SCH ×6 (03:45→22:15)
[2018-06-07 05:22] LABS: Mean Cell Volume 88.6 fL (80.0-100.0); Mean Corpuscular HGB Conc 33.7 g/dL (31.0-36.0); Mean Corpuscular Hemoglobin 29.9 pg (26.0-34.0); Platelet Count 264 K/mcL (140-440); RBC 3.65 M/mcL (4.50-5.90); Red Cell Distribution Width 14.7 % (11.5-14.5)
[2018-06-07] MEDS: PIPERACILLIN SODIUM/TAZOBACTAM 2.25 GM in DEXTROSE 5% IN WATER 50 ML IV SCH ×4 (05:34→23:33)
[2018-06-07] MEDS: 0.9 % SODIUM CHLORIDE 10 ML SYRINGE IV SCH ×3 (05:34→20:25)
[2018-06-07 05:54] LABS: ALT/SGPT 26 U/l (0-40); Albumin 3.4 gm/dL (3.2-5.2); Alkaline Phosphatase 52 U/L (39-117); Bilirubin,Direct < 0.2 mg/dL (0.0-0.3); Blood Urea Nitrogen 33 mg/dl (8-23); Gamma Glutamyl Transpeptidase 35 U/L (8-61); Uric Acid 8.7 mg/dL (2.5-8.0)
[2018-06-07 06:10] LABS: Band Neutrophils % 4 % (0-10); Lymphocytes % 9 % (15-49); Metamyelocytes % 1 % (0-0); Monocytes % (Manual) 7 % (1-12); Platelet Estimate NORMAL (NORMAL); RBC Morphology NORMAL (NORMAL); Segmented Neutrophils % 79 % (38-78)
[2018-06-07] MEDS: BUDESONIDE 0.5 MG/2 ML AMPUL.NEB NEB SCH ×2 (08:05→18:53)
[2018-06-07 08:52] LABS: Vancomycin,Random 9.2 ug/mL
[2018-06-07] MEDS: CYANOCOBALAMIN (VITAMIN B-12) 500 MCG TABLET PO SCH ×2 (10:33→20:25)
[2018-06-07] MEDS: MULTIVIT,THER IRON,CA,FA & MIN 1 TABLET PO SCH (10:33)
[2018-06-07] MEDS: FOLIC ACID 1 MG TABLET PO SCH (10:33)
[2018-06-07] MEDS: HEPARIN 5,000 UNIT/ML VIAL SQ SCH ×2 (10:33→20:24)
[2018-06-07] MEDS: NICOTINE 21 MG PATCH TOPICAL SCH (10:43)
--- NOTE | 2018-06-07 10:55 | Internal Med Progress Note ---
Medical - PN: Subj Patient information: Note initiated : 06/07/18 at 10:48 am Service Date, if different from initiated Date: [] Patient: Case Ortega a 82 y/o M admitted on 06/04/18 for Weakness. Chief Complaint: [] Interval history: Mr. Ortega is a 82 year old M with history of oxygen dependent COPD/active smoker with over 70 pack yr smoking/ DM type II/congenital single kidney/hypertension/ history of CAD status post stent 2012 who presents to the ER with his daughter with worsening mental status, diarrhea, sore throat and progressive weakness that have evolved over the last 5 days. Patient lives with his daughter and on her normal baseline is able to perform ADLs/drive. His symptoms started with sore throat after he was exposed to a sick contact [id number]. Symptoms were followed by onset of diarrhea and nausea along with loss of appetite. Patient since then has been laying on bed unable to perform ADL's. He was seen at [facility] because of above symptoms and weakness but discharged after a few hours of treatment in the ER. Over the course of the next 48 hours patient became increasingly fatigued lethargic, unable to eat or drink and sleeping most of the day. He presents today with above symptoms. Initial workup was significant for creatinine of 3.2. His white count is down from 20, 2 days ago to 9.5 today. Patient was started on crystalloids, hospitalist service was consulted after discussion with nephrology. 06/05-patient experiencing significant shortness of breath. Fluids temperature is continued. Chest x-ray shows basilar infiltrates/effusion. Started on antibiotic coverage. Low blood glucose. Status post D50. Creatinine down from 2.2-2.7. Blood cultures positive for gram-positive cocci. Surveillance blood cultures pending. On empiric coverage and Zosyn. Echocardiogram ordered. Patient started on BiPAP along with diuretics due to increased work of breathing. Case discussed with daughter Ami and son. Updated on deteriorating clinical status and treatment plan. Family made aware of poor prognosis. 06/06-patient off BiPAP. No overnight events. Feeling a lot better. Son at bedside. Discussed lab findings and clinical improvement. Patient will be transferred to medical floor. Anticipate discharge on Friday. Continue physical therapy. White count 12.8. Creatinine down to 2.3. Continuing antibiotic coverage for left sided pneumonia. 06/07 Pt seen examined, son by the bedside, pt has no acute complains or concerns, eager to have breakfast shortness of breath much lizbeth labs stable, creat trending down 1.6 this AM pt blood cx is coag neg staph one bottle, likely contaminant. d/c nguyen, wean off oxygen, anticipate d/c in AM if off oxygen Pertinent ROS: Denies headache, dizziness Denies chest pain, palpitations Denies cough or shortness of breath (much improved) Denies abdominal pain, nausea or vomiting. - Constitutional Vitals: Vital Signs Temp Pulse Resp BP Pulse Ox 97.9 F 63 24 H 179/64 93 06/07/18 06:25 06/07/18 08:12 06/07/18 08:12 06/07/18 06:25 06/07/18 08:06 Period Temp Pulse Resp BP Sys/Martinez Pulse Ox Last 24 Hr 97.1 F-98.7 F 60-93 16-24 114-179/43-69 93-96 Intake and Output 06/06/18 06/07/18 06/07/18 21:59 05:59 13:59 Intake Total 620 / 620 400 / 400 50 / 50 Output Total 650 / 650 700 / 700 375 / 375 Balance -30 / -30 -300 / -300 -325 / -325 Weight 208 lb 8 oz Intake & Output: Intake & Output 06/06/18 06/07/18 06/07/18 21:59 05:59 13:59 Intake Total 620 / 620 400 / 400 50 / 50 Output Total 650 / 650 700 / 700 375 / 375 Balance -30 / -30 -300 / -300 -325 / -325 Weight 208 lb 8 oz Intake: IV 50 / 50 50 / 50 50 / 50 Zosyn 2.25 gm In Dextrose 5% in 50 / 50 50 / 50 50 / 50 Water 50 ml @ 100 mls/hr IV Q6H [facility] Rx#:[id number] Oral 570 / 570 350 / 350 Output: Urine Catheter Amount 650 / 650 700 / 700 375 / 375 Other: Meal Dinner Percent of Meal Consumed 25% Feeding Ability Assist with Tray Set Up Urine Appearance Clear Cloudy Urine Color Bright Yellow Dark Yellow Urine Odor Strong Exam: Constitutional; Afebrile, cooperative, alert, not in distress. Eyes- No icterus, , No periorbital swelling Ears- Ext ear normal, hearing hard to conversation. Neck- Midline trachea, supple Respiratory system: Air Entry equal on both sides,mild exp wheezing. CVS- Rate rhythm regular, S1,S2 heard, no gallop, no rub. Abdomen- Soft nontender abdomen, no organomegaly, no tenderness, no guarding or rigidity, [employer]- AOOx3, moving all extremities, no gross focal deficit noted. Medical - PN: Obj Da - Labs CBC & Chem 7: 06/07/18 03:51 06/07/18 03:51 Labs: Abnormal Lab Results 06/07/18 06/07/18 06/06/18 03:51 03:51 03:52 WBC 11.3 H RBC 3.65 L Hgb 10.9 L Hct 32.3 L RDW 14.7 H Gran % Lymph % (Auto) Gran # Lymph # (Auto) Seg Neutrophils % 79 H Lymphocytes % 9 L Metamyelocytes % 1 H ESR Anion Gap BUN 33 H 44 H Creatinine 1.6 H 2.3 H Glucose 175 H 140 H Uric Acid 8.7 H 11.5 H Phosphorus 2.5 L Magnesium AST C-Reactive Protein NT-Pro-B Natriuret Pep Triglycerides 222 H 182 H Ur Leukocyte Esterase Calcium Oxalate Crystal Hyaline Casts 06/06/18 06/05/18 06/05/18 03:52 09:40 03:29 WBC 12.8 H RBC 3.80 L Hgb 11.1 L Hct 34.0 L RDW 14.9 H Gran % Lymph % (Auto) Gran # Lymph # (Auto) Seg Neutrophils % Lymphocytes % 13 L Metamyelocytes % ESR Anion Gap BUN 47 H Creatinine 2.7 H Glucose 26 L* Uric Acid 10.7 H Phosphorus Magnesium 1.4 L AST 39 H C-Reactive Protein NT-Pro-B Natriuret Pep 1667.0 H Triglycerides 206 H Ur Leukocyte Esterase Calcium Oxalate Crystal Hyaline Casts 06/05/18 06/04/18 06/04/18 03:29 22:08 16:57 WBC RBC 3.68 L Hgb 10.8 L Hct 32.7 L RDW 14.6 H Gran % Lymph % (Auto) Gran # Lymph # (Auto) Seg Neutrophils % 87 H Lymphocytes % 9 L Metamyelocytes % ESR Anion Gap BUN Creatinine Glucose Uric Acid Phosphorus Magnesium AST C-Reactive Protein 5.5 H NT-Pro-B Natriuret Pep Triglycerides Ur Leukocyte Esterase 75 A Calcium Oxalate Crystal Few A Hyaline Casts 29 H 06/04/18 06/04/18 06/04/18 16:57 13:04 13:04 WBC RBC 4.19 L Hgb 11.7 L Hct 36.4 L RDW Gran % 84.8 H Lymph % (Auto) 8.8 L Gran # 8.1 H Lymph # (Auto) 0.8 L Seg Neutrophils % Lymphocytes % Metamyelocytes % ESR 35 H Anion Gap 18.0 H BUN 49 H Creatinine 3.2 H Glucose 50 L Uric Acid Phosphorus Magnesium AST C-Reactive Protein NT-Pro-B Natriuret Pep Triglycerides Ur Leukocyte Esterase Calcium Oxalate Crystal Hyaline Casts Meds: Medications Acetaminophen (Tylenol) 650 mg PO Q4-6HP PRN PRN Reason: PAIN/FEVER > 101 Last Admin: 06/06/18 20:03 Dose: 650 mg Albuterol/Ipratropium (Duoneb) 3 ml NEB Q4HRT [facility] Last Admin: 06/07/18 08:05 Dose: 3 ml Budesonide (Pulmicort) 0.5 mg NEB Q12 [facility] Last Admin: 06/07/18 08:05 Dose: 0.5 mg Cyanocobalamin (Vitamin B-12) 1,000 mcg PO BID [facility] Stop: 06/08/18 09:01 Last Admin: 06/07/18 10:33 Dose: 1,000 mcg Folic Acid (Folic Acid) 1 mg PO DAILY [facility] Last Admin: 06/07/18 10:33 Dose: 1 mg Heparin Sodium (Porcine) (Heparin) 5,000 unit SQ Q12 [facility] Last Admin: 06/07/18 10:33 Dose: 5,000 unit Potassium Chloride 40 meq/ (Dextrose) 520 mls @ 130 mls/hr IV UD PRN PRN Reason: K+ = or < 3.5 Magnesium Sulfate (Magnesium Sulfate) 2 gm in 50 mls @ 50 mls/hr IV UD PRN PRN Reason: MG = or < 1.7 Acetaminophen (Ofirmev) 1,000 mg in 100 mls @ 200 mls/hr IV Q6HP PRN PRN Reason: PAIN/FEVER > 101 Piperacillin Sod/Tazobactam (Sod 2.25 gm/ Dextrose) 50 mls @ 100 mls/hr IV Q6H [facility] Last Infusion: 06/07/18 06:37 Dose: Infused Vancomycin HCl 1,500 mg/ (Sodium Chloride) 500 mls @ 333.3 mls/hr IV DAILY [facility] Iron Carb/Multivit/Numerical Control Nesting Operator/Folic Acid (Multivitamin W/Minerals) 1 tab PO DAILY [facility] Last Admin: 06/07/18 10:33 Dose: 1 tab Nicotine (Nicoderm) 21 mg TOPICAL DAILY@1000 [facility] Last Admin: 06/07/18 10:43 Dose: 21 mg Ondansetron HCl (Zofran) 4 mg IV Q4-6HP PRN PRN Reason: Nausea And Vomiting Potassium Chloride (Klor-Con) 40 meq PO DAILYP PRN PRN Reason: K+ < 3.5 Sodium Chloride (Saline Flush) 10 ml IV Q8 [facility] Last Admin: 06/07/18 05:34 Dose: 10 ml Vancomycin HCl (Vancomycin Per Pharmacy) 1 order IV UD [facility] Medical - PN: A/P - Time Spent With Patient Total time spent is greater than 50% in coordination of care (as documented) at patient's floor/unit and/or counseling patient: - Narrative A/P Narrative: A/P Acute hypoxic/Hypercapenic respiraotry failure- Due to pnha- clinically much better, off bipap, on oxygen via nasal canula, plan to wean off same. Sepsis- due to pna, resolved GPC bactermia- Coag neg staph, one bottle, likely contaminant, repeat culture are negative, will follow up on results KVNG- Appreciated nephrology help, pt doing much better, creat is trending down, 1.6 today, d/c nguyen Diarrhea- improved Dehydartion/ volume depletion, resolved DM type 2- glucose ok, less than 180 on bmp, had low value on presentation, but is normal now. pt tolerating po well Acute copd exacerbation- mild wheeze on exam, on bronchodilators/ oxygen as needed DVT hep sq Full code Medical - PN: Qual - Stroke Symptom Onset Unknown: No - VTE Deep Vein Thrombosis/Pulmonary Embolism Present on Admission: No
[2018-06-07] MEDS: VANCOMYCIN 1,500 MG in 0.9 % SODIUM CHLORIDE 500 ML IV SCH (11:07)
[2018-06-07] MEDS: GABAPENTIN 300 MG CAPSULE PO SCH (20:24)
[2018-06-07] MEDS: amLODIPine 10 MG TABLET PO SCH (20:25)
[2018-06-07] MEDS ORDERED: oxyCODONE/APAP 5/325MG TABLET PO PRN (22:48)
[2018-06-07] MEDS ORDERED: oxyCODONE/APAP 5/325MG TABLET PO ONE (23:26)
[2018-06-08] MEDS: IPRATROPIUM/ALBUTEROL 3 ML AMPUL.NEB NEB SCH ×6 (04:09→23:07)
[2018-06-08 05:59] LABS: Mean Cell Volume 87.8 fL (80.0-100.0); Mean Corpuscular HGB Conc 33.7 g/dL (31.0-36.0); Mean Corpuscular Hemoglobin 29.6 pg (26.0-34.0); Platelet Count 254 K/mcL (140-440); RBC 3.59 M/mcL (4.50-5.90); Red Cell Distribution Width 14.3 % (11.5-14.5)
[2018-06-08] MEDS: PIPERACILLIN SODIUM/TAZOBACTAM 2.25 GM in DEXTROSE 5% IN WATER 50 ML IV SCH (06:05)
[2018-06-08] MEDS: 0.9 % SODIUM CHLORIDE 10 ML SYRINGE IV SCH ×3 (06:29→20:03)
[2018-06-08 06:37] LABS: ALT/SGPT 23 U/l (0-40); Albumin 3.3 gm/dL (3.2-5.2); Albumin/Globulin Ratio 1.1 (1.0-2.3); Alkaline Phosphatase 49 U/L (39-117); Bilirubin,Direct < 0.2 mg/dL (0.0-0.3); Blood Urea Nitrogen 26 mg/dl (8-23); Gamma Glutamyl Transpeptidase 33 U/L (8-61); Uric Acid 7.5 mg/dL (2.5-8.0)
[2018-06-08 07:54] LABS: Band Neutrophils % 2 % (0-10); Lymphocytes % 7 % (15-49); Monocytes % (Manual) 2 % (1-12); Platelet Estimate NORMAL (NORMAL); RBC Morphology NORMAL (NORMAL); Segmented Neutrophils % 89 % (38-78)
[2018-06-08] MEDS: BUDESONIDE 0.5 MG/2 ML AMPUL.NEB NEB SCH ×2 (08:01→19:38)
[2018-06-08] MEDS: CYANOCOBALAMIN (VITAMIN B-12) 500 MCG TABLET PO SCH (08:21)
[2018-06-08] MEDS: FENOFIBRATE 43 MG CAPSULE PO SCH (08:22)
[2018-06-08] MEDS: HYDROCHLOROTHIAZIDE 25 MG TABLET PO SCH (08:22)
[2018-06-08] MEDS: LOSARTAN 50 MG TABLET PO SCH (08:22)
[2018-06-08] MEDS: OMEPRAZOLE 20 MG CAPSULE PO SCH (08:22)
[2018-06-08] MEDS: GABAPENTIN 300 MG CAPSULE PO SCH ×2 (08:22→20:03)
[2018-06-08] MEDS: VITAMIN D3 1,000 UNIT TABLET PO SCH (08:22)
[2018-06-08] MEDS: ESCITALOPRAM 10 MG TABLET PO SCH (08:23)
[2018-06-08] MEDS: ASCORBIC ACID 500 MG TABLET PO SCH (08:23)
[2018-06-08] MEDS: FOLIC ACID 1 MG TABLET PO SCH (08:23)
[2018-06-08] MEDS: MULTIVIT,THER IRON,CA,FA & MIN 1 TABLET PO SCH (08:23)
[2018-06-08] MEDS: ASPIRIN 81 MG TAB.CHEW PO SCH (08:23)
[2018-06-08] MEDS: HEPARIN 5,000 UNIT/ML VIAL SQ SCH ×2 (08:25→20:02)
[2018-06-08] MEDS: predniSONE 20 MG TABLET PO SCH (08:54)
[2018-06-08] MEDS: VANCOMYCIN 1,500 MG in 0.9 % SODIUM CHLORIDE 500 ML IV SCH (11:42)
[2018-06-08] MEDS ORDERED: PIPERACILLIN SODIUM/TAZOBACTAM 2.25 GM in DEXTROSE 5% IN WATER 50 ML IV SCH (12:00)
[2018-06-08] MEDS ORDERED: fentaNYL 75 MCG PATCH TOPICAL SCH (12:00)
[2018-06-08] MEDS: NICOTINE 21 MG PATCH TOPICAL SCH (12:05)
--- NOTE | 2018-06-08 12:54 | Internal Med Progress Note ---
Medical - PN: Subj Patient information: Note initiated : 06/08/18 at 12:50 pm Service Date, if different from initiated Date: [] Patient: Case Ortega a 82 y/o M admitted on 06/04/18 for Weakness. Chief Complaint: [] Interval history: Mr. Ortega is a 82 year old M with history of oxygen dependent COPD/active smoker with over 70 pack yr smoking/ DM type II/congenital single kidney/hypertension/ history of CAD status post stent 2012 who presents to the ER with his daughter with worsening mental status, diarrhea, sore throat and progressive weakness that have evolved over the last 5 days. Patient lives with his daughter and on her normal baseline is able to perform ADLs/drive. His symptoms started with sore throat after he was exposed to a sick contact [id number]. Symptoms were followed by onset of diarrhea and nausea along with loss of appetite. Patient since then has been laying on bed unable to perform ADL's. He was seen at [facility] because of above symptoms and weakness but discharged after a few hours of treatment in the ER. Over the course of the next 48 hours patient became increasingly fatigued lethargic, unable to eat or drink and sleeping most of the day. He presents today with above symptoms. Initial workup was significant for creatinine of 3.2. His white count is down from 20, 2 days ago to 9.5 today. Patient was started on crystalloids, hospitalist service was consulted after discussion with nephrology. 06/05-patient experiencing significant shortness of breath. Fluids temperature is continued. Chest x-ray shows basilar infiltrates/effusion. Started on antibiotic coverage. Low blood glucose. Status post D50. Creatinine down from 2.2-2.7. Blood cultures positive for gram-positive cocci. Surveillance blood cultures pending. On empiric coverage and Zosyn. Echocardiogram ordered. Patient started on BiPAP along with diuretics due to increased work of breathing. Case discussed with daughter Ami and son. Updated on deteriorating clinical status and treatment plan. Family made aware of poor prognosis. 06/06-patient off BiPAP. No overnight events. Feeling a lot better. Son at bedside. Discussed lab findings and clinical improvement. Patient will be transferred to medical floor. Anticipate discharge on Friday. Continue physical therapy. White count 12.8. Creatinine down to 2.3. Continuing antibiotic coverage for left sided pneumonia. 06/07 Pt seen examined, son by the bedside, pt has no acute complains or concerns, eager to have breakfast shortness of breath much lizbeth labs stable, creat trending down 1.6 this AM pt blood cx is coag neg staph one bottle, likely contaminant. d/c nguyen, wean off oxygen, anticipate d/c in AM if off oxygen 06/08 She is in examined, no acute overnight events. His shortness of breath is better however he still has significant wheezing, he also visibly appears short of breath with minimal activity labs are stable. Started the patient on prednisone today, if his breathing improves and stable discharge tomorrow Pertinent ROS: Denies headache, dizziness Denies chest pain, palpitations improving cough and shortness of breath Denies abdominal pain, nausea or vomiting. - Constitutional Vitals: Vital Signs Temp Pulse Resp BP Pulse Ox 98.6 F 66 18 180/66 91 06/08/18 08:25 06/08/18 08:12 06/08/18 08:25 06/08/18 08:25 06/08/18 08:25 Period Temp Pulse Resp BP Sys/Martinez Pulse Ox Last 24 Hr 97.2 F-98.8 F 57-72 18-24 167-184/57-95 91-96 Intake and Output 06/07/18 06/08/18 06/08/18 21:59 05:59 13:59 Intake Total 550 / 550 450 / 450 920 / 920 Output Total 375 / 375 325 / 325 250 / 250 Balance 175 / 175 125 / 125 670 / 670 Weight 209 lb Intake & Output: Intake & Output 06/07/18 06/08/18 06/08/18 21:59 05:59 13:59 Intake Total 550 / 550 450 / 450 920 / 920 Output Total 375 / 375 325 / 325 250 / 250 Balance 175 / 175 125 / 125 670 / 670 Weight 209 lb Intake: IV 100 / 100 50 / 50 Zosyn 2.25 gm In Dextrose 5% in 100 / 100 50 / 50 Water 50 ml @ 100 mls/hr IV Q6H [facility] Rx#:[id number] Oral 450 / 450 400 / 400 920 / 920 Output: Void Amount 375 / 375 325 / 325 250 / 250 Other: Meal Breakfast Percent of Meal Consumed 100% Urine Color Dark Yellow Dark Yellow Bright Yellow # Voids 1 1 1 Exam: Constitutional; Afebrile, cooperative, alert, not in distress. Respiratory system: Air Entry equal on both sides, No crackles or wheezing, no rhonchi. CVS- Rate rhythm regular, S1,S2 heard, no gallop, no rub. 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 Medical - PN: Obj Da - Labs CBC & Chem 7: 06/08/18 04:15 06/08/18 04:15 Labs: Abnormal Lab Results 06/08/18 06/08/18 06/07/18 04:15 04:15 03:51 WBC RBC 3.59 L Hgb 10.6 L Hct 31.6 L RDW Seg Neutrophils % 89 H Lymphocytes % 7 L Metamyelocytes % BUN 26 H 33 H Creatinine 1.4 H 1.6 H Glucose 141 H 175 H Uric Acid 8.7 H Phosphorus 2.5 L Triglycerides 204 H 222 H 06/07/18 06/06/18 06/06/18 03:51 03:52 03:52 WBC 11.3 H 12.8 H RBC 3.65 L 3.80 L Hgb 10.9 L 11.1 L Hct 32.3 L 34.0 L RDW 14.7 H 14.9 H Seg Neutrophils % 79 H Lymphocytes % 9 L 13 L Metamyelocytes % 1 H BUN 44 H Creatinine 2.3 H Glucose 140 H Uric Acid 11.5 H Phosphorus Triglycerides 182 H Meds: Medications Acetaminophen (Tylenol) 650 mg PO Q4-6HP PRN PRN Reason: PAIN/FEVER > 101 Last Admin: 06/06/18 20:03 Dose: 650 mg Albuterol/Ipratropium (Duoneb) 3 ml NEB Q4HRT [facility] Last Admin: 06/08/18 12:11 Dose: 3 ml Amlodipine Besylate (Norvasc) 10 mg PO HS [facility] Last Admin: 06/07/18 20:25 Dose: 10 mg Ascorbic Acid (Vitamin C) 500 mg PO DAILY [facility] Last Admin: 06/08/18 08:23 Dose: 500 mg Aspirin (Aspirin) 81 mg PO DAILY [facility] Last Admin: 06/08/18 08:23 Dose: 81 mg Budesonide (Pulmicort) 0.5 mg NEB Q12 [facility] Last Admin: 06/08/18 08:01 Dose: 0.5 mg Escitalopram Oxalate (Lexapro) 10 mg PO DAILY [facility] Last Admin: 06/08/18 08:23 Dose: 10 mg Fenofibrate (Antara) 129 mg PO DAILY [facility] Last Admin: 06/08/18 08:22 Dose: 129 mg Fentanyl (Duragesic) 75 mcg TOPICAL Q72H [facility] Last Admin: 06/08/18 12:06 Dose: 75 mcg Folic Acid (Folic Acid) 1 mg PO DAILY [facility] Last Admin: 06/08/18 08:23 Dose: 1 mg Gabapentin (Neurontin) 600 mg PO BID [facility] Last Admin: 06/08/18 08:22 Dose: 600 mg Heparin Sodium (Porcine) (Heparin) 5,000 unit SQ Q12 [facility] Last Admin: 06/08/18 08:25 Dose: 5,000 unit Hydrochlorothiazide (Oretic) 25 mg PO DAILY [facility] Last Admin: 06/08/18 08:22 Dose: 25 mg Potassium Chloride 40 meq/ (Dextrose) 520 mls @ 130 mls/hr IV UD PRN PRN Reason: K+ = or < 3.5 Magnesium Sulfate (Magnesium Sulfate) 2 gm in 50 mls @ 50 mls/hr IV UD PRN PRN Reason: MG = or < 1.7 Acetaminophen (Ofirmev) 1,000 mg in 100 mls @ 200 mls/hr IV Q6HP PRN PRN Reason: PAIN/FEVER > 101 Vancomycin HCl 1,500 mg/ (Sodium Chloride) 500 mls @ 333.3 mls/hr IV DAILY [facility] Last Admin: 06/08/18 11:42 Dose: 333.3 mls/hr Piperacillin Sod/Tazobactam (Sod 3.375 gm/ Dextrose) 50 mls @ 100 mls/hr IV Q6H [facility] Iron Carb/Multivit/Yolo/Folic Acid (Multivitamin W/Minerals) 1 tab PO DAILY [facility] Last Admin: 06/08/18 08:23 Dose: 1 tab Losartan Potassium (Cozaar) 100 mg PO DAILY [facility] Last Admin: 06/08/18 08:22 Dose: 100 mg Nicotine (Nicoderm) 21 mg TOPICAL DAILY@1000 [facility] Last Admin: 06/08/18 12:05 Dose: 21 mg Nebivolol Hcl [ Bystolic] 2.5 Mg Tablet 1 dose PO DAILY [facility] Omeprazole (Prilosec) 40 mg PO ACB [facility] Last Admin: 06/08/18 08:22 Dose: 40 mg Ondansetron HCl (Zofran) 4 mg IV Q4-6HP PRN PRN Reason: Nausea And Vomiting Oxycodone/Acetaminophen (Percocet 5-325 Mg) 1 tab PO Q6HP PRN PRN Reason: PAIN LEVEL 3-6 Last Admin: 06/08/18 12:05 Dose: 1 tab Potassium Chloride (Klor-Con) 40 meq PO DAILYP PRN PRN Reason: K+ < 3.5 Prednisone (Prednisone) 40 mg PO QAC [facility] Last Admin: 06/08/18 08:54 Dose: 40 mg Sodium Chloride (Saline Flush) 10 ml IV Q8 [facility] Last Admin: 06/08/18 06:29 Dose: 10 ml Vancomycin HCl (Vancomycin Per Pharmacy) 1 order IV UD [facility] Vitamin D (Vitamin D3) 2,000 unit PO DAILY [facility] Last Admin: 06/08/18 08:22 Dose: 2,000 unit Medical - PN: A/P - Time Spent With Patient Total time spent is greater than 50% in coordination of care (as documented) at patient's floor/unit and/or counseling patient: - Narrative A/P Narrative: A/P Acute hypoxic/Hypercapenic respiraotry failure- Due to pnha- clinically much better, off bipap, on oxygen via nasal canula, weaned off this AM, doing well on room air. continue antibiotics Sepsis- due to pna, resolved GPC bacteremia- Coag neg staph, one bottle, likely contaminant, repeat culture are negative, will follow up on results KVNG- Appreciated nephrology help, pt doing much better, creat is trending down, 1.6 today, d/c nguyen Diarrhea- improved Dehydration/ volume depletion, resolved DM type 2- glucose ok, less than 180 on bmp, had low value on presentation, but is normal now. pt tolerating po well Acute copd exacerbation- wheeze worse today on exam,, on bronchodilators/ oxygen as needed, started on po prednisone, anticipate a short burst would help DVT hep sq Full code Medical - PN: Qual - Stroke Symptom Onset Unknown: No - VTE Deep Vein Thrombosis/Pulmonary Embolism Present on Admission: No
[2018-06-08] MEDS: PIPERACILLIN SODIUM/TAZOBACTAM 3.375 GM in DEXTROSE 5% IN WATER 50 ML IV SCH ×3 (13:58→23:21)
[2018-06-08] MEDS: NEBIVOLOL HCL 2.5 MG PO SCH (13:59)
[2018-06-08] MEDS: amLODIPine 10 MG TABLET PO SCH (20:03)
[2018-06-08] MEDS ORDERED: traZODone HCL 50 MG TABLET PO PRN (21:00)
[2018-06-09] MEDS: IPRATROPIUM/ALBUTEROL 3 ML AMPUL.NEB NEB SCH ×2 (03:49→08:18)
[2018-06-09 06:03] LABS: Mean Cell Volume 88.7 fL (80.0-100.0); Mean Corpuscular HGB Conc 33.3 g/dL (31.0-36.0); Mean Corpuscular Hemoglobin 29.5 pg (26.0-34.0); Platelet Count 269 K/mcL (140-440); RBC 3.45 M/mcL (4.50-5.90); Red Cell Distribution Width 14.8 % (11.5-14.5)
[2018-06-09] MEDS: PIPERACILLIN SODIUM/TAZOBACTAM 3.375 GM in DEXTROSE 5% IN WATER 50 ML IV SCH (06:28)
[2018-06-09] MEDS: 0.9 % SODIUM CHLORIDE 10 ML SYRINGE IV SCH (06:28)
[2018-06-09 06:41] LABS: ALT/SGPT 22 U/l (0-40); Albumin 3.2 gm/dL (3.2-5.2); Alkaline Phosphatase 54 U/L (39-117); Bilirubin,Direct < 0.2 mg/dL (0.0-0.3); Blood Urea Nitrogen 26 mg/dl (8-23); Gamma Glutamyl Transpeptidase 32 U/L (8-61); Uric Acid 6.5 mg/dL (2.5-8.0)
[2018-06-09] MEDS: OMEPRAZOLE 20 MG CAPSULE PO SCH (07:02)
[2018-06-09] MEDS: predniSONE 20 MG TABLET PO SCH (08:11)
[2018-06-09] MEDS: BUDESONIDE 0.5 MG/2 ML AMPUL.NEB NEB SCH (08:18)
[2018-06-09 08:21] LABS: Band Neutrophils % 3 % (0-10); Basophils % (Manual) 1 % (0-2); Lymphocytes % 13 % (15-49); Monocytes % (Manual) 5 % (1-12); Platelet Estimate NORMAL (NORMAL); RBC Morphology NORMAL (NORMAL); Segmented Neutrophils % 78 % (38-78)
[2018-06-09] MEDS: HEPARIN 5,000 UNIT/ML VIAL SQ SCH (08:49)
[2018-06-09] MEDS: FENOFIBRATE 43 MG CAPSULE PO SCH (08:49)
[2018-06-09] MEDS: ASCORBIC ACID 500 MG TABLET PO SCH (08:50)
[2018-06-09] MEDS: VITAMIN D3 1,000 UNIT TABLET PO SCH (08:50)
[2018-06-09] MEDS: GABAPENTIN 300 MG CAPSULE PO SCH (08:50)
[2018-06-09] MEDS: ASPIRIN 81 MG TAB.CHEW PO SCH (08:50)
[2018-06-09] MEDS: MULTIVIT,THER IRON,CA,FA & MIN 1 TABLET PO SCH (08:51)
[2018-06-09] MEDS: ESCITALOPRAM 10 MG TABLET PO SCH (08:51)
[2018-06-09] MEDS: LOSARTAN 50 MG TABLET PO SCH (08:51)
[2018-06-09] MEDS: HYDROCHLOROTHIAZIDE 25 MG TABLET PO SCH (08:51)
[2018-06-09] MEDS: FOLIC ACID 1 MG TABLET PO SCH (08:51)
[2018-06-09] MEDS: VANCOMYCIN 1,500 MG in 0.9 % SODIUM CHLORIDE 500 ML IV SCH (09:15)
[2018-06-09] MEDS: NEBIVOLOL HCL 2.5 MG PO SCH (10:04)
--- NOTE | 2018-06-09 10:05 | Discharge Summary ---
Medical - DS: Prov Patient information: Note initiated : 06/09/18 at 10:03 am Service Date, if different from initiated Date: [] Patient: Case Ortega 82 y/o M admitted on 06/04/18 for Weakness. Chief Complaint: [] Date of admission: 06/04/18 16:19 Discharge date: 06/09/18 Primary care physician: Luisana La Consults: 06/04/18 Consult to Physician [CONS] Stat Comment: Consulting Provider: Alex Neely Reason For Exam: Physician to Consult 06/04/18 14:27 Consult to Physician [CONS] Stat Comment: Consulting Provider: Amy Montero Reason For Exam: Physician to Consult Discharging clinician: Cristine Ridley Medical - DS: Meds - Discharge Medications Prescriptions: Levofloxacin 750 mg PO Q48H #2 tab predniSONE [Prednisone] [facility] Active and Home Medications: Home Medications metFORMIN HCL [Metformin HCl] 500 mg PO DAILY 06/04/18 [History Confirmed Last Taken Unknown] oxyCODONE/APAP [Percocet 5-325 mg] 1 tab PO QIDP PRN 06/04/18 [History Confirmed 06/06/18 Last Taken Unknown] Ascorbate Calcium [Vitamin C] 500 mg PO DAILY 06/06/18 [History Confirmed Last Taken Unknown] Aspirin [Adult Aspirin] 81 mg PO DAILY 06/06/18 [History Confirmed 06/06/18 Last Taken Unknown] Escitalopram [Lexapro] 10 mg PO DAILY 06/06/18 [History Confirmed 06/06/18 Last Taken Unknown] Fenofibrate,Micronized [Fenofibrate] 134 mg PO HS 06/06/18 [History Confirmed Last Taken Unknown] Gabapentin [Neurontin] 600 mg PO QID 06/06/18 [History Confirmed 06/06/18 Last Taken Unknown] Losartan/Hydrochlorothiazide [Losartan-Hctz 100-25 mg Tab] 1 each PO DAILY 06/06 [History Confirmed 06/06/18 Last Taken Unknown] Magnesium Oxide [Magnesium] 400 mg PO DAILY 06/06/18 [History Confirmed Last Taken Unknown] Multivitamin [One Daily] 1 each PO DAILY 06/06/18 [History Confirmed 06/06/18 Last Taken Unknown] Nebivolol HCl [Bystolic] 2.5 mg PO DAILY 06/06/18 [History Confirmed 06/06/18 Last Taken Unknown] Omeprazole [PriLOSEC] 40 mg PO ACB 06/06/18 [History Confirmed 06/06/18 Last Taken Unknown] Vitamin D3 2,000 unit PO DAILY 06/06/18 [History Confirmed 06/06/18 Last Taken Unknown] amLODIPine [Norvasc] 10 mg PO HS 06/06/18 [History Confirmed 06/06/18 Last Taken Unknown] fentaNYL [Fentanyl] 1 each TD Q72H 06/06/18 [History Confirmed 06/06/18 Last Taken Unknown] glipiZIDE [Glipizide ER] 10 mg PO DAILY 06/06/18 [History Confirmed 06/06/18 Last Taken Unknown] Medical - DS: Hosp Hospital course: Mr. Ortega is a 82 year old M with history of oxygen dependent COPD/active smoker with over 70 pack yr smoking/ DM type II/congenital single kidney/hypertension/ history of CAD status post stent 2012 who presents to the ER with his daughter with worsening mental status, diarrhea, sore throat and progressive weakness that have evolved over the last 5 days. Patient lives with his daughter and on her normal baseline is able to perform ADLs/drive. His symptoms started with sore throat after he was exposed to a sick contact [id number]. Symptoms were followed by onset of diarrhea and nausea along with loss of appetite. Patient since then has been laying on bed unable to perform ADL's. He was seen at [facility] because of above symptoms and weakness but discharged after a few hours of treatment in the ER. Over the course of the next 48 hours patient became increasingly fatigued lethargic, unable to eat or drink and sleeping most of the day. He presents today with above symptoms. Initial workup was significant for creatinine of 3.2. His white count is down from 20, 2 days ago to 9.5 today. Patient was started on crystalloids, hospitalist service was consulted after discussion with nephrology. 06/05-patient experiencing significant shortness of breath. Fluids temperature is continued. Chest x-ray shows basilar infiltrates/effusion. Started on antibiotic coverage. Low blood glucose. Status post D50. Creatinine down from 2.2-2.7. Blood cultures positive for gram-positive cocci. Surveillance blood cultures pending. On empiric coverage and Zosyn. Echocardiogram ordered. Patient started on BiPAP along with diuretics due to increased work of breathing. Case discussed with daughter Ami and son. Updated on deteriorating clinical status and treatment plan. Family made aware of poor prognosis. 06/06-patient off BiPAP. No overnight events. Feeling a lot better. Son at bedside. Discussed lab findings and clinical improvement. Patient will be transferred to medical floor. Anticipate discharge on Friday. Continue physical therapy. White count 12.8. Creatinine down to 2.3. Continuing antibiotic coverage for left sided pneumonia. 06/07 Pt seen examined, son by the bedside, pt has no acute complains or concerns, eager to have breakfast shortness of breath much lizbeth labs stable, creat trending down 1.6 this AM pt blood cx is coag neg staph one bottle, likely contaminant. d/c wendy, wean off oxygen, anticipate d/c in AM if off oxygen 06/08 She is in examined, no acute overnight events. His shortness of breath is better however he still has significant wheezing, he also visibly appears short of breath with minimal activity labs are stable. Started the patient on prednisone today, if his breathing improves and stable discharge tomorrow 06/09 Patient seen examined, no acute overnight issues, still has mild wheeze but feels better, able to ambulate today down the [address] way, no oxygen needs Eager to go home. Will be discharged home with oral levofloxacin for total of 4 days (750mg q48hrs 2 tabs) and prednisone for another 5 days. He has his nebulizers at home which he will continue. Declined SNF placement, will be sent with home health. In Summary A/P Acute hypoxic/Hypercapnic respiratory failure- Due to pnha- Resolved at the time of discharge needed bipap and oxygen supplementation during hospitalization. Sepsis- due to pna, resolved GPC bacteremia- Coag neg staph, one bottle, likely contaminant, repeat culture are negative, will follow up on results KVNG- Appreciated nephrology help, pt doing much better, creat is trending down, 1.3 at the time of discharge, home meds resumed, PCP to follow up on renal function in 1 week, if worsening consider outpatient nephrology follow up. Dehydration/ volume depletion, resolved Acute copd exacerbation- improved with steroids, antibiotics and duonebs, d/c on po prednisone and nebulizers. PT has nebulizer device and medications at home , it was not listed as his home medication. No change has been made to his home medication regime, he will take all his home meds as prescribed by his PCP Discharge diagnosis: Acute kidney injury, Pneumonia, COPD exacerbation - Time Spent with Patient Total time spent providing and/or coordinating discharge services: Less than 30 minutes Medical - DS: Exam - Constitutional Vitals: Vital Signs Temp Pulse Pulse Resp BP Pulse Ox 06/09/18 08:26 58 L 18 06/09/18 08:19 90 06/09/18 07:48 97.2 F 61 20 168/67 90 06/09/18 07:03 65 20 06/09/18 04:00 97.7 F 65 20 138/49 92 06/08/18 23:29 98.1 F 67 20 164/59 90 06/08/18 23:05 89 20 06/08/18 19:40 64 20 06/08/18 19:00 97.5 F 72 24 H 183/64 90 06/08/18 16:04 97.6 F 18 149/74 90 06/08/18 15:45 87 20 06/08/18 13:00 98.4 F 18 154/78 90 06/08/18 12:15 86 20 Intake and Output 06/08/18 06/09/18 06/09/18 21:59 05:59 13:59 Intake Total 1140 / 1140 150 / 150 530 / 530 Output Total 625 / 625 275 / 275 150 / 150 Balance 515 / 515 -125 / -125 380 / 380 Intake: IV 100 / 100 50 / 50 50 / 50 Zosyn 3.375 gm In Dextrose 5% 100 / 100 50 / 50 50 / 50 in Water 50 ml @ 100 mls/hr IV Q6H [facility] Rx#:[id number] Oral 1040 / 1040 100 / 100 480 / 480 Output: Void Amount 625 / 625 275 / 275 150 / 150 Other: Meal Dinner Breakfast Percent of Meal Consumed 75% 100% Feeding Ability Independent Urine Appearance Clear Clear Clear Urine Color Dark Yellow Straw Straw Urine Odor Normal Normal Normal Weight 210 lb Additional comments: Constitutional; Afebrile, cooperative, alert, not in distress. Respiratory system: Air Entry equal on both sides,mild exp wheezing, otherwise much better air entry today. CVS- Rate rhythm regular, S1,S2 heard, no gallop, no rub. 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 Medical - DS: Data Labs on day of discharge: Labs from last 24 hours 06/09/18 06/09/18 03:50 03:50 WBC 10.3 RBC 3.45 L Hgb 10.2 L Hct 30.6 L MCV 88.7 MCH 29.5 MCHC 33.3 RDW 14.8 H Plt Count 269 MPV 8.6 Total Counted 100 Seg Neutrophils % 78 Band Neutrophils % 3 Lymphocytes % 13 L Monocytes % (Manual) 5 Basophils % (Manual) 1 Platelet Estimate Normal RBC Morphology Normal Sodium 139 Potassium 3.4 Chloride 98 Carbon Dioxide 27 Anion Gap 14.0 BUN 26 H Creatinine 1.3 H GFR Calculation 51 Glucose 201 H Uric Acid 6.5 Calcium 9.7 Phosphorus 2.6 L Magnesium 1.6 Total Bilirubin 0.3 Direct Bilirubin < 0.2 GGT 32 AST 19 ALT 22 Alkaline Phosphatase 54 Lactate Dehydrogenase 320 H Total Protein 6.3 Albumin 3.2 Globulin 3.1 Albumin/Globulin Ratio 1.0 Triglycerides 257 H Preliminary micro results at discharge 06/04/18 13:20 Blood Culture - Preliminary Blood 06/05/18 09:40 Blood Culture - Preliminary Blood 06/05/18 09:49 Blood Culture - Preliminary Blood 06/04/18 13:04 Blood Culture - Preliminary Blood Gram positive cocci Medical - DS: A/P - Patient/Caregiver Discharge Instructions Activity: increase activity as tolerated Diet: Cardiac, Consistent Carbohydrate Additional Instructions: Please follow up with your PCP in 1 week Make sure you PCP checks your CMP (kidney function ) in 1 week and make sure its improving. NO changes made to your home medication list, take them as before. You will take prednisone 40mg (2 tabs with food) for another 5 days, Antibiotics (levofloxacin 750mg one tab every other day for total of 2 tablets) Home PT will be set up Go to the ER if worsening symptoms, chest pain, shortness of breath or any other acute concerns. - Follow up Plan Follow up with: Luisana La ARNP [Primary Care Provider] - Disposition: Home Health Service Prognosis: Fair Rehab Potential: Fair I certify that the patient requires SNF services: No Overall status at discharge: patient is progressing back to baseline Medical - DS: Qual - VTE Deep Vein Thrombosis/Pulmonary Embolism Present on Admission: No
[2018-06-09] MEDS: NICOTINE 21 MG PATCH TOPICAL SCH (11:10)
== END 2018-06-09 12:00 | disposition home health service (06) | DRG 682 ==
LOC: ED 12:27 → MEDSUR 16:15 → ICU 06-05 04:10 → MEDSUR 06-06 15:56
PROVIDERS: ADMIT Internal Medicine; ATTEND Internal Medicine
CPT/HCPCS: 84145; 87149; 97161; 99231; 99238; J1644; J1940; J2543; J3370; J3475; J7030; J7040; J7042; J7060; J7120; J7620; J7620-GY; J7626; J7626-GY